=== PATIENT | female | born 1935 | race Caucasian/White ===

== ENCOUNTER → 2016-10-09 | Outpatient (CLI) | payer MEDICARE, MEDICAID | END | disposition disaster alternative care site (69) | LOC: LKCL 08:33 | DX: M79.604 Pain in right leg (principal); L03.115 Cellulitis of right lower limb; L03.116 Cellulitis of left lower limb ==

== ENCOUNTER → 2016-11-13 | Outpatient (CLI) | payer MEDICARE, MEDICAID | END | disposition disaster alternative care site (69) | LOC: GRAD 10:28 | DX: R56.9 Unspecified convulsions (principal); I67.82 Cerebral ischemia; R51 Headache ==